=== PATIENT | male | born 1955 | race Two or more races ===

== ENCOUNTER 2021-03-10 04:22 | Day surgery (SDC) | payer OTHER ==
[2021-03-07 14:34] VITALS: BMI 33.6
[2021-03-10] MEDS ORDERED: LIDOCAINE HCL/PF 2% SDV 5ML VIAL ONE (09:40)
[2021-03-10] MEDS ORDERED: KETOROLAC TROMETHAMINE 30 MG/1 ML VIAL ONE (09:40)
[2021-03-10] MEDS ORDERED: PROPOFOL 20 ML ONE (09:40)
[2021-03-10 11:04] VITALS: BP 141/70; PULSE 61; TEMP 98.5
== END 2021-03-10 10:55 | disposition home or self-care (01) ==
LOC: JASU-SURG 04:22
PROVIDERS: ATTEND Urology
PROC: 0TF3XZZ Fragmentation in Right Kidney Pelvis, External Approach (ICD-10-PCS; principal; 2021-03-10 09:30)
DX: N20.0 Calculus of kidney (principal)

== ENCOUNTER 2021-04-21 04:37 | Day surgery (SDC) | payer OTHER ==
[2021-04-18 13:35] VITALS: BMI 30.4
[2021-04-21] MEDS ORDERED: MIDAZOLAM HCL 2 MG/2 ML SINGLE DOSE VIAL ONE (14:45)
[2021-04-21 16:23] VITALS: BP 150/81; PULSE 58; TEMP 97.7
== END 2021-04-21 16:15 | disposition home or self-care (01) ==
LOC: JASU-SURG 04:37
PROVIDERS: ATTEND Urology
PROC: 0TF4XZZ Fragmentation in Left Kidney Pelvis, External Approach (ICD-10-PCS; principal; 2021-04-21 13:30)
DX: N20.0 Calculus of kidney (principal)

== ENCOUNTER 2021-06-16 04:41 | Day surgery (SDC) | payer OTHER ==
[2021-06-12 12:37] VITALS: BMI 25.6
[2021-06-16] MEDS ORDERED: PROPOFOL 20 ML ONE (11:10)
[2021-06-16] MEDS ORDERED: MIDAZOLAM HCL 2 MG/2 ML SINGLE DOSE VIAL ONE (11:11)
[2021-06-16] MEDS ORDERED: ONDANSETRON 4 MG/2 ML VIAL IVPUSH PRN (12:16)
[2021-06-16] MEDS ORDERED: ACETAMINOPHEN 500 MG TABLET (FP) PO PRN (12:16)
[2021-06-16] MEDS ORDERED: oxyCODONE HCL 5 MG TABLET PO PRN (12:16)
[2021-06-16] MEDS ORDERED: LACTATED RINGERS SOLUTION 1,000 ML IV SCH (12:30)
[2021-06-16 13:50] VITALS: BP 145/70; PULSE 58; TEMP 97.8
== END 2021-06-16 13:25 | disposition home or self-care (01) ==
LOC: JASU-SURG 04:41
PROVIDERS: ATTEND Urology
PROC: 0TF4XZZ Fragmentation in Left Kidney Pelvis, External Approach (ICD-10-PCS; principal; 2021-06-16 11:00)
DX: N20.0 Calculus of kidney (principal)